=== PATIENT | male | born 1980 | race Caucasian/White ===

== ENCOUNTER 2020-03-02 01:15 | Emergency (ER) | payer OTHER ==
[~2020-03-02] VITALS: Ht 182.9 cm; Wt 79.4 kg
[~2020-03-02 01:15] MED LIST: BENZ100A PO; IBUP600 PO; IBUP800 PO; MUSCLE RELAXER; Mucinex600 MG PO; NAPR500 PO; NAPR550 PO; OXYACE5T PO; PAIN RELIEVER; POTCHL20ER PO; Prilosec Otc20 MG PO; TRAM50 PO; TRAZ50 PO; Zithromax250 MG PO; [UNRECOGNIZED DRUG - REMARK]
== END 2020-03-02 03:00 | disposition home or self-care (01) ==
LOC: ER 01:15
DX: H61.22 Impacted cerumen, left ear (principal)
CPT/HCPCS: 69209; 99282-25

== ENCOUNTER 2020-11-20 15:12 | Emergency (ER) | payer SELFPAY ==
[~2020-11-20] VITALS: Ht 175.3 cm; Wt 76.2 kg
== END 2020-11-20 17:17 | disposition home or self-care (01) ==
LOC: ER 15:12
DX: R55 Syncope and collapse (principal); Z79.899 Other long term (current) drug therapy
CPT/HCPCS: 93005; 93010; 99284-25

== ENCOUNTER 2022-03-07 21:03 | Emergency (ER) | payer OTHER ==
[~2022-03-07] VITALS: Ht 175.3 cm; Wt 72.6 kg
[2022-03-07 21:46] LABS: BASOPHILS ABSOLUTE AUTO 0.05 K/mm3 (0.00-0.23); BASOPHILS PERCENT AUTO 1 % (0-2); EOSINOPHILS ABSOLUTE AUTO 0.31 K/mm3 (0.00-0.68); EOSINOPHILS PERCENT AUTO 4 % (0-6); Hematocrit 39.9 % (37.0-53.0); Hemoglobin 13.5 g/dL (13.5-17.5); IMMATURE GRAN ABSOLUTE AUTO 0.01 K/mm3 (0.00-0.10); IMMATURE GRAN PERCENT AUTO 0 % (0-1); LYMPHOCYTES ABSOLUTE AUTO 3.29 K/mm3 (0.84-5.20); LYMPHOCYTES PERCENT AUTO 42 % (21-46); MONOCYTES ABSOLUTE AUTO 0.48 K/mm3 (0.16-1.47); MONOCYTES PERCENT AUTO 6 % (4-13); Mean Corpuscular HGB 30.8 pg (26.0-34.0); Mean Corpuscular HGB Conc 33.8 g/dL (31.5-36.5); Mean Corpuscular Volume 91 fL (80-100); Mean Platelet Volume 8.7 fL (9.1-12.4); NEUTROPHILS ABSOLUTE AUTO 3.63 K/mm3 (1.96-9.15); NEUTROPHILS PERCENT AUTO 47 % (41-73); Platelet Count 342 K/mm3 (150-400); RDW Standard Deviation 43.4 fL (35.1-46.3); Red Blood Cell Count 4.39 M/mm3 (4.30-5.90); White Blood Cell Count 7.77 K/mm3 (4.00-11.30)
[2022-03-07 22:03] LABS: Albumin, Blood 4.1 g/dL (3.4-5.0); Albumin/Globulin Ratio 1.4 (0.8-1.8); Bilirubin, Total 0.5 mg/dL (0.1-1.0); Bun/Creatinine Ratio 14.3 (12.0-20.0); Calcium, Blood 9.4 mg/dL (8.5-10.1); Creatinine, Blood 0.91 mg/dL (0.60-1.20); Potassium, Blood 3.5 mmol/L (3.5-5.5); Total Protein, Blood 7.1 g/dL (6.4-8.2)
[2022-03-08] MEDS ORDERED: IBU800 MG PO (00:20)
== END 2022-03-08 00:56 | disposition home or self-care (01) ==
LOC: ER 21:03
PROVIDERS: Physician Assistant
DX: M94.0 Chondrocostal junction syndrome [Tietze] (principal); F17.290 Nicotine dependence, other tobacco product, uncomplicated
CPT/HCPCS: 71046; 80053; 83690; 85025; 96374; 99283-25; A9270; J1885; J2405; J7030